=== PATIENT | male | born 1935 | race Caucasian/White ===

== ENCOUNTER 2017-09-01 09:25 | Day surgery (SDC) | payer OTHER, BC ==
[2017-08-27 11:31] VITALS: BMI 25.1
[2017-09-01] MEDS ORDERED: PROPOFOL 20 ML ONE ×2 (09:53→10:51)
[2017-09-01 11:19] VITALS: TEMP 97.5
[2017-09-01 11:50] VITALS: BP 142/70; PULSE 60
--- NOTE | 2017-09-03 12:51 | PATH ---
Surgical Pathology Report Patient Name: LEONCIO SAWYER [facility]. Rec. #: [id number] /Age/Gender: 1935 (Age: 82) / M Account: [id number] Location: [facility]-ENDOSCOPY Taken: 08/31/2017 Received: 09/01/2017 Reported: 09/03/2017 Physicians: Lon Cortes M.D. Specimen(s) Received ILEOCECAL VALVE POLYP Clinical History Change in bowel habits Postoperative diagnosis: Polyp Final Diagnosis ILEOCECAL VALVE, POLYP, BIOPSY: TUBULAR ADENOMA. Electronically Signed Nancy Maxwell M.D. Gross Description Received in formalin, labeled "ileocecal valve polyp" is a quintanilla, polypoid portion of soft tissue measuring 1.2 cm. in greatest dimension. The specimen is submitted in toto in one cassette. 09/01/2017 [facility]09/01/2017
== END 2017-09-01 12:05 | disposition home or self-care (01) ==
LOC: FASU-ENDO 09:25
PROVIDERS: ATTEND Internal Medicine Gastroenterology
PROC: 0DBC8ZX Excision of Ileocecal Valve, Via Natural or Artificial Opening Endoscopic, Diagnostic (ICD-10-PCS; principal; 2017-09-01 10:45)
PROC: 0D5H8ZZ Destruction of Cecum, Via Natural or Artificial Opening Endoscopic (ICD-10-PCS; 2017-09-01 10:45)
DX: D12.0 Benign neoplasm of cecum (principal); K55.20 Angiodysplasia of colon without hemorrhage; K57.30 Diverticulosis of large intestine without perforation or abscess without bleeding
CPT/HCPCS: 82962; 88305-TC